=== PATIENT | female | born 1995 | race Two or more races ===

== ENCOUNTER 2018-02-05 15:21 | Emergency (ER) | payer OTHER ==
[~2018-02-05] VITALS: Ht 154.9 cm; Wt 69.9 kg
[2018-02-05 15:24] VITALS: BP 12/74
== END 2018-02-05 16:41 | disposition home or self-care (01) ==
LOC: ED 16:35
DX: H00.15 Chalazion left lower eyelid (principal)
CPT/HCPCS: 99283

== ENCOUNTER → 2018-04-17 | Outpatient (CLI) | payer OTHER ==
[2018-04-17 07:59] LABS: ALBUMIN 3.8 g/dL (3.4-5.0); ANION GAP 8 mmol/L (5-15); CALCIUM 8.8 mg/dL (8.5-10.1); CHLORIDE 109 mmol/L (98-107)
[2018-04-17 08:08] LABS: ALANINE AMINOTRANSFERASE 31 U/L (12-78); ALKALINE PHOSPHATASE 75 U/L (45-117); BILIRUBIN,TOTAL 0.4 mg/dL (0.2-1.0); CHOLESTEROL, TOTAL 159 mg/dL (140-239); FREE T4 (FREE THYROXINE) 1.09 ng/dL (0.76-1.46); HDL CHOL % 25 % (28-40); HDL CHOLESTEROL (DIRECT) 40 mg/dL (40-60); LDL CHOLESTEROL,CALCULATED 94 mg/dL (54-169); LDL/HDL RATIO 2.4 (0.5-3.0); THYROID STIMULATING HORMONE 0.898 mIU/L (0.358-3.740); TOTAL PROTEIN 7.2 g/dL (6.4-8.2); TRIGLYCERIDES 126 mg/dL (50-200); VLDL CHOLESTEROL 25 mg/dL (0-25)
[2018-04-17 08:10] LABS: HEMOGLOBIN A1C 5.2 % (4.2-6.3)
== END | disposition home or self-care (01) ==
LOC: LAB 07:12
PROVIDERS: ATTEND Family Medicine
DX: Z00.01 Encounter for general adult medical examination with abnormal findings (principal); R73.9 Hyperglycemia, unspecified; R63.5 Abnormal weight gain
CPT/HCPCS: 36415; 80053; 80061; 83036; 84439; 84443

== ENCOUNTER 2020-05-01 08:26 | Outpatient (CLI) | payer OTHER ==
[2020-05-01 09:18] LABS: MICROSCOPIC NOT IND
[2020-05-01 09:28] LABS: BASOPHILS # (AUTO) 0.06 x10^3/uL (0-0.1); BASOPHILS % (AUTO) 1 % (0-1); EOSINOPHILS # (AUTO) 0.49 x10^3/uL (0-0.4); EOSINOPHILS % (AUTO) 6 % (1-7); LYMPHOCYTES # (AUTO) 2.75 x10^3/uL (1-3.4); LYMPHOCYTES % (AUTO) 31 % (22-44); MD NO; MEAN CORPUSCULAR HEMOGLOBIN 28.4 pg (27.0-34.8); MEAN CORPUSCULAR HGB CONC 32.7 g/dL (32.4-35.8); MEAN PLATELET VOLUME 8.9 fL (7.4-10.4); MONOCYTES # (AUTO) 0.55 x10^3/uL (0.2-0.8); MONOCYTES % (AUTO) 6 % (2-9); NEUTROPHILS # (AUTO) 5.07 x10^3/uL (1.8-6.8); NEUTROPHILS % (AUTO) 57 % (42-75); PLATELET COUNT 281 x10^3/uL (130-400); RED BLOOD COUNT 4.95 x10^6/uL (3.82-5.3); RED CELL DISTRIBUTION WIDTH 13.4 % (9.6-15.2)
[2020-05-01 09:35] LABS: ALANINE AMINOTRANSFERASE 57 U/L (12-78); ALBUMIN 3.8 g/dL (3.4-5.0); ANION GAP 7 mmol/L (5-15); CALCIUM 9.2 mg/dL (8.5-10.1); CHLORIDE 110 mmol/L (98-107)
[2020-05-01 09:39] LABS: ALKALINE PHOSPHATASE 89 U/L (45-117); BILIRUBIN,TOTAL 0.3 mg/dL (0.2-1.0); TOTAL PROTEIN 7.3 g/dL (6.4-8.2)
== END 2020-05-01 23:59 | disposition home or self-care (01) ==
LOC: STAR 08:26
PROVIDERS: ATTEND Obstetrics & Gynecology Gynecology
DX: Z01.818 Encounter for other preprocedural examination (principal); Z11.59 Encounter for screening for other viral diseases; D27.0 Benign neoplasm of right ovary
CPT/HCPCS: 36415; 80053; 81003; 84703; 85025; 87635

== ENCOUNTER 2020-05-05 05:39 | Day surgery (SDC) | payer OTHER ==
[~2020-05-05] VITALS: Ht 154.9 cm; Wt 79.9 kg
[2020-05-05] MEDS ORDERED: LACTATED RINGERS 1,000 ML IV SCH (06:07)
[2020-05-05 06:08] VITALS: BP 127/86
[2020-05-05] MEDS ORDERED: NO MEDS PER PATIENT (06:11)
[2020-05-05] MEDS ORDERED: METHYLENE BLUE 10 MG/ML 10ML ONE (06:21)
[2020-05-05] MEDS ORDERED: FLUORESCEIN SODIUM 500 MG/5 ML ONE (06:21)
[2020-05-05] MEDS ORDERED: LIDOCAINE 1%-EPI 1:100K, 20ML ONE (06:21)
[2020-05-05 06:26] LABS: HCG UR SG 1.034 (1.003-1.030)
[2020-05-05] MEDS ORDERED: CHLORHEXIDINE 15 ML UDC MM ONE (06:30)
[2020-05-05] MEDS ORDERED: SILVER NITRATE STICK TP ONE (06:37)
[2020-05-05] MEDS ORDERED: CEFAZOLIN 1,000 MG ONE (06:57)
[2020-05-05] MEDS ORDERED: NEOSTIGMINE 1 MG/ML, 10ML ONE (06:57)
[2020-05-05] MEDS ORDERED: ROCURONIUM 10MG/ML,5ML ONE (06:57)
[2020-05-05] MEDS ORDERED: FENTANYL PF 100 MCG/2ML ONE ×2 (06:57→09:06)
[2020-05-05] MEDS ORDERED: PROPOFOL 10 MG/ML, 20ML ONE (06:57)
[2020-05-05] MEDS ORDERED: MIDAZOLAM 1 MG/ML, 2ML ONE (06:57)
[2020-05-05] MEDS ORDERED: GLYCOPYRROLATE 0.2MG/1ML, 5ML ONE (06:57)
[2020-05-05] MEDS ORDERED: ONDANSETRON 2MG/ML, 2ML ONE (06:57)
[2020-05-05] MEDS ORDERED: SUCCINYLCHOLINE 20 MG/ML, 10ML ONE (06:57)
[2020-05-05] MEDS ORDERED: DEXAMETHASONE 4 MG/ML, 1ML ONE (06:57)
[2020-05-05] MEDS ORDERED: FENTANYL PF 100 MCG/2ML IV PRN (07:30)
[2020-05-05] MEDS ORDERED: MEPERIDINE/PF 25MG/0.5ML IVPush PRN (07:30)
[2020-05-05] MEDS ORDERED: OXYcodone 5 MG/5 ML ORAL.SOL UDC PO PRN (07:30)
[2020-05-05] MEDS ORDERED: PROMETHAZINE 25 MG/ML, 1ML IVPush PRN (07:30)
[2020-05-05] MEDS ORDERED: HYDROcodone/APAP 7.5-325MG/15ML UDC PO PRN (07:30)
[2020-05-05] MEDS ORDERED: KETOROLAC 30 MG/1 ML IVPush PRN (07:30)
[2020-05-05] MEDS ORDERED: HYDROmorphone 1 MG/ML, 1ML INJ IVPush PRN (07:30)
[2020-05-05] MEDS ORDERED: HYDROcodone/APAP 7.5-325MG/15ML UDC ONE (09:06)
[2020-05-05] MEDS ORDERED: MEPERIDINE/PF 25MG/ML,1ML ONE (09:06)
== END 2020-05-05 11:52 | disposition home or self-care (01) ==
LOC: OUT 05:39
PROVIDERS: ATTEND Obstetrics & Gynecology Gynecology
DX: D27.0 Benign neoplasm of right ovary (principal)
CPT/HCPCS: 58662; 81025; 88304; J0330; J0690; J1100; J1885; J2175; J2250; J2405; J2704; J2710; J3010; J3490; J7120; 36415; 87635; Q9968

== ENCOUNTER → 2021-03-08 | Outpatient (CLI) | payer OTHER ==
[~2021-03-08] MED LIST: NO MEDS PER PATIENT
[2021-03-08 11:10] LABS: BASOPHILS % (AUTO) 1 % (0-1); EOSINOPHILS % (AUTO) 2 % (1-7); LYMPHOCYTES % (AUTO) 25 % (22-44); MEAN CORPUSCULAR HEMOGLOBIN 28.9 pg (27.0-34.8); MEAN CORPUSCULAR HGB CONC 33.8 g/dL (32.4-35.8); MEAN PLATELET VOLUME 8.5 fL (7.4-10.4); MONOCYTES % (AUTO) 5 % (2-9); NEUTROPHILS % (AUTO) 67 % (42-75); PLATELET COUNT 273 x10^3/uL (130-400); RED BLOOD COUNT 5.11 x10^6/uL (3.82-5.3); RED CELL DISTRIBUTION WIDTH 14.2 % (9.6-15.2)
[2021-03-08 11:12] LABS: MD NO
[2021-03-08 11:18] LABS: ALANINE AMINOTRANSFERASE 39 U/L (12-78); ALBUMIN 4.2 g/dL (3.4-5.0); ANION GAP 7 mmol/L (5-15); CALCIUM 9.1 mg/dL (8.5-10.1); CHLORIDE 109 mmol/L (98-107); CHOLESTEROL, TOTAL 204 mg/dL (140-239); CREATININE 0.73 mg/dL (0.55-1.02); TRIGLYCERIDES 223 mg/dL (50-200); VLDL CHOLESTEROL 45 mg/dL (0-25)
[2021-03-08 11:29] LABS: ALKALINE PHOSPHATASE 81 U/L (45-117); BILIRUBIN,TOTAL 0.5 mg/dL (0.2-1.0); CHOL/HDL RATIO 5.4; HDL CHOL % 19 % (28-40); HDL CHOLESTEROL (DIRECT) 38 mg/dL (40-60); LDL CHOLESTEROL,CALCULATED 121 mg/dL (54-169); LDL/HDL RATIO 3.2 (0.5-3.0); TOTAL PROTEIN 8.4 g/dL (6.4-8.2)
== END | disposition home or self-care (01) ==
LOC: LAB 10:50
PROVIDERS: ATTEND Family Medicine
DX: Z13.220 Encounter for screening for lipoid disorders (principal); Z13.1 Encounter for screening for diabetes mellitus; Z00.00 Encounter for general adult medical examination without abnormal findings
CPT/HCPCS: 36415; 80053; 80061; 82306; 83036; 84443; 85025